=== PATIENT | male | born 1965 | race Two or more races ===

== ENCOUNTER 2019-11-05 14:30 | Emergency (ER) | payer BC ==
[~2019-11-05] VITALS: Ht 170.2 cm; Wt 79.4 kg
[2019-11-05] MEDS ORDERED: TDAP [DIPH/PERTUSSIS/TET] 0.5 ML VIAL IM ONE ×2 (14:37→15:00)
[2019-11-05] MEDS ORDERED: LIDOCAINE 1%-EPI 1:100,000 20 ML VIAL ONE (14:37)
[2019-11-05] MEDS ORDERED: LIDOCAINE 1% INJ 50 ML MDV IJ ONE ×2 (14:38→15:00)
[2019-11-05] MEDS ORDERED: IBUPROFEN 600 MG TABLET PO ONE ×2 (14:42→15:00)
--- NOTE | 2019-11-05 14:48 | NUR ---
PT CAME INTO THE ED C/O R HAND LACERATION DT DOG BITE. PT AAOX4, VSS, BREATHING EVEN AND UNLABORED ON ROOM AIR W/ NAD NOTED.
--- NOTE | 2019-11-05 14:53 | NUR ---
TECH AT BEDSIDE FOR WOUND CARE
--- NOTE | 2019-11-05 15:09 | NUR ---
DR MILLER AT BEDSIDE FOR LAC REPAIR
[2019-11-05 15:59] VITALS: BP 127/81
--- NOTE | 2019-11-05 15:59 | NUR ---
Patient discharged to home in stable condition. Written and verbal after care instructions given. Patient verbalizes understanding of instruction.
[2019-11-05] MEDS ORDERED: BACITRACIN ZINC OINT PACKET 1 EA PACKET TP ONE (16:00)
== END 2019-11-05 16:00 | disposition home or self-care (01) ==
LOC: ER 14:30
DX: S61.411A Laceration without foreign body of right hand, initial encounter (principal); F43.10 Post-traumatic stress disorder, unspecified; Z88.8 Allergy status to other drugs, medicaments and biological substances; W54.0XXA Bitten by dog, initial encounter; Y93.89 Activity, other specified; Y92.89 Other specified places as the place of occurrence of the external cause; Y99.8 Other external cause status
CPT/HCPCS: 12002; 90471; 90715; 99283; A6403; J3490